=== PATIENT | female | born 1965 | race Caucasian/White ===

== ENCOUNTER 2022-03-10 16:29 | Emergency (ER) | payer OTHER, SELFPAY ==
--- NOTE | ~2022-03-10 | XR_ITS ---
EXAMINATION: XR foot LT min 3V DATE: 03/10/2022 17:18 INDICATION: Left foot pain TECHNIQUE: Dorsoplantar, lateral, and 2 oblique views of the left foot were obtained. COMPARISON: None. FINDINGS: An orthopedic screw is present in the calcaneus. No acute fracture is identified. Bone alig nment is normal. 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 Posterior and plantar calcaneal enthesophytes are noted. IMPRESSION: 1. No acute osseous abnormality. Reviewed, dictated and finalized at location F.
[2022-03-10 16:55] VITALS: BP 124/61; PULSE 85; RESP 18; TEMP 36.6; O2SAT 97
--- NOTE | 2022-03-10 17:10 | ED.LOWEXIN ---
HPI - Extremity Injury (Lower) General Chief Complaint: Extremity Injury, Lower Stated Complaint: left foot injury,wc Time Seen by Provider: 03/10/22 17:10 Source: patient, family and RN notes reviewed Mode of arrival: ambulatory Limitations: no limitations History of Present Illness HPI Narrative: 56-year-old female presents to express care with complaints of injury to her left foot which occurred at 11 AM today when she was stepping off the bus and slipped and hit ground. Patient reports pain to her lateral left foot with increased pain with any weight bearing. Patient does have some swelling to the lateral aspect of her left foot with no bruising noted, states pain is 6/10 and is continuous. She has taken Tylenol and applied ice to her foot. MD complaint: foot injury (left) Related Data Home Medications Medication Instructions Recorded Confirmed cyclobenzaprine [Flexeril] 10 mg PO HS 03/10/22 03/10/22 gabapentin 03/10/22 lisinopril 10 mg PO DAILY 03/10/22 03/10/22 metformin 1,000 mg PO DAILY 03/10/22 03/10/22 pravastatin 10 mg PO DAILY 03/10/22 03/10/22 tramadol 03/10/22 trazodone 03/10/22 Allergies Allergy/AdvReac Type Severity Reaction Status Date / Time alatrofloxacin Allergy Unknown Rash Verified 03/10/22 16:58 trovafloxacin Allergy Unknown Rash Verified 03/10/22 16:58 diphenhydramine AdvReac Hyperactive Verified 03/10/22 16:58 [From Zoe] Review of Systems Review of Systems: CONSTITUTIONAL: Denies fever, chills, or sweats. EYES: Denies visual changes, redness, or discharge. ENT: Denies rhinorrhea, congestion, sore throat, or otalgia. CARDIOVASCULAR: Denies chest pain, palpitations, or edema. RESPIRATORY: Denies cough or dyspnea. GASTROINTESTINAL: Denies abdominal pain, nausea, vomiting, or diarrhea. GENITOURINARY: Denies dysuria or hematuria. SKIN: Denies rash or itching. MUSCULOSKELETAL: Denies back pain,Left foot pain lateral aspect., or myalgia. NEUROLOGIC: Denies headache, numbness, or weakness. PSYCHIATRIC: Denies anxiety or depression. All systems reviewed & are unremarkable except as noted in HPI and below PMFSH Past Medical History Medical History (Updated 03/11/22 @ 20:55 by Mirella Wilder NP) Diabetes Elevated cholesterol Hypertension Family History Family History (Updated 06/17/16 @ 23:19 by DOCTOR UNKNOWN) Father Family history of diabetes mellitus in first degree relative, Onset Age: 52 Family history of heart disease in male family member before age 55, Onset Age: 52 Grandparent Family history of malignant neoplasm of esophagus, Onset Age: 70 Social History Social History Smoking status: Never smoker Alcohol intake: current Comments At time of signature, agree with nursing past medical, surgical, social and family history. There is no relevant family history pertinent to the presenting complaint Exam Narrative: GENERAL: Well-appearing, well-nourished, and in no acute distress. HEAD: Normocephalic, atraumatic. EYES: PERRLA and EOMI. ENT: Nares clear, no rhinorrhea or epistaxis. Mucous membranes moist.TM's normal with good light reflex, throat pink with no lesions or tonsil swelling. NECK: Supple.no lymphadenopathy CHEST: Clear to auscultation. No respiratory distress.SAO2 97% on room air no dyspnea or any tachypnea HEART: Regular rate and rhythm. No murmur heard. Normal peripheral pulses. ABDOMEN: Soft, nontender, nondistended, normal active bowel sounds. EXTREMITIES: Normal range of motion. No edema.Exception noted to lateral left foot with noted mild edema and pain with weight bearing, circulation intact and sensation. SKIN: Warm, dry, no rash. NEURO: No focal deficits. Alert and oriented x3. Course Course Level of Care: Express Care Visit Vital Signs Vital signs: Vital Signs Temperature 36.6 C 03/10/22 16:55 Pulse Rate 85 03/10/22 16:55 Respiratory Rate 18 03/10/22 16:55 Blood Pr
== END 2022-03-10 17:46 | disposition home or self-care (01) ==
PROVIDERS: Emergency Provider Registered Nurse
DX: S93.602A Unspecified sprain of left foot, initial encounter (principal); W17.89XA Other fall from one level to another, initial encounter; E11.9 Type 2 diabetes mellitus without complications; E78.00 Pure hypercholesterolemia, unspecified; I10 Essential (primary) hypertension
CPT/HCPCS: 73630; 99213; G0463